=== PATIENT | female | born 1980 | race Caucasian/White ===

== ENCOUNTER 2024-08-01 18:57 | Emergency (ER) | payer SELFPAY ==
[2024-08-01 19:10] VITALS: BP 164/80; PULSE 100; RESP 14; TEMP 36.5; O2SAT 100
--- NOTE | 2024-08-01 19:37 | ED.GENADULT ---
HPI - General Adult General Chief complaint: Recheck/Abnormal Lab/Rx Stated complaint: OUT OF NERVE PAIN MEDICATIONS Time Seen by Provider: 08/01/24 19:31 History of Present Illness HPI narrative: 44 old female presented emergency to the department for evaluation for a medication refill. Patient is in town visiting family and patient for got her baclofen and gabapentin. Patient will be in town for the next 14 days. Review of Systems Review of Systems: All systems reviewed & are unremarkable except as noted in HPI and below Exam Narrative: APPEARANCE: Well appearing, no pain, no distress, well-nourished. HEAD: normocephalic, atraumatic. EYES: PERRLA/EOMI, conjunctivae clear. NOSE: Normal no drainage EARS:TMS clear with good light reflex. THROAT: Pharynx clear, no exudate. NECK: Supple. No adenopathy, no masses. RESPIRATORY: Airway patent, respirations nonlabored. Clear to auscultation bilaterally, no rales, rhonchi, wheezing. CARDIOVASCULAR: Regular rate and rhythm without murmurs rubs or gallops. ABDOMINAL: Soft, nontender, nondistended, normal bowel sounds MUSCULOSKELETAL: Moves all extremities. Strength/ROM intact, No edema, No calf tenderness. NEURO: Alert. Cranial nerves II through XII intact. Grossly intact SKIN: Warm, dry. Normal Color Course Vital Signs Vital signs: Vital Signs Temperature 97.7 F 08/01/24 19:10 Pulse Rate 100 08/01/24 19:10 Respiratory Rate 14 08/01/24 19:10 Blood Pressure 164/80 H 08/01/24 19:10 Pulse Oximetry 100 08/01/24 19:10 Oxygen Delivery Room Air 08/01/24 19:10 Temperature 97.7 F 08/01/24 19:10 Pulse Rate 100 08/01/24 19:10 Respiratory Rate 14 08/01/24 19:10 Blood Pressure 164/80 H 08/01/24 19:10 Pulse Oximetry 100 08/01/24 19:10 Oxygen Delivery Room Air 08/01/24 19:10 Medical Decision Making [facility] Narrative Medical decision making narrative: 44 old female with history of lower extremity process spasm presents emergency department for refill for her baclofen and gabapentin. Vital Signs Vital Signs: Vital Signs Temperature 97.7 F 08/01/24 19:10 Pulse Rate 100 08/01/24 19:10 Respiratory Rate 14 10/14/24 19:10 Blood Pressure 164/80 H 08/01/24 19:10 Pulse Oximetry 100 08/01/24 19:10 Oxygen Delivery Room Air 08/01/24 19:10 Temperature 97.7 F 08/01/24 19:10 Pulse Rate 100 08/01/24 19:10 Respiratory Rate 14 08/01/24 19:10 Blood Pressure 164/80 H 08/01/24 19:10 Pulse Oximetry 100 08/01/24 19:10 Oxygen Delivery Room Air 08/01/24 19:10 Discharge Plan Discharge Clinical Impression: Encounter for medication refill Patient Disposition: Home, Self-Care Condition: Stable Instructions: Antibiotic Form Additional Instructions: Have close follow-up with your primary care physician. Prescriptions: New baclofen 10 mg tablet 10 mg PO TID 14 Days Qty: 42 0RF gabapentin 600 mg tablet 600 mg PO TID 14 Days Qty: 42 0RF Follow-up/Referrals: PHYSICIAN,[employer]OR [Non-Staff] -
== END 2024-08-01 19:53 | disposition home or self-care (01) ==
LOC: ANHED 19:50
PROVIDERS: Emergency Provider Emergency Medicine
DX: M62.838 Other muscle spasm (principal); G82.20 Paraplegia, unspecified; Z76.0 Encounter for issue of repeat prescription
CPT/HCPCS: 99281